=== PATIENT | male | born 1940 | race Asian ===

== ENCOUNTER 2020-02-06 14:20 | Emergency (ER) | payer OTHER ==
[~2020-02-06] VITALS: Ht 170.2 cm; Wt 65.8 kg
--- NOTE | 2020-02-06 15:05 | NUR ---
BIBDAUGHTER FROM HOME TO ER BED 12. AAOX4. NO IN RESP DISTRESS, BREATHING EVEN AND UNLABORED. AMBULATORY. BROUGHT IN FOR BILAT LOWER LEG EDEMA THAT HAS BEEN GOING ON FOR THE PAST 2 MONTH. ALSO, DAUGHTER REPORTS THAT HE HAD A FALL 10DAYS AGO AND HIT HIS HEAD. PT CANT REMEMBER IF HE PASSED OUT. NOTED L EYE REDNESS AND PURPLISH DISCOLORATION. NOTED +3 EDEMA ON BILAT LOWER LEG. WOUND ON L KNEE W/ SCAB. MD WAS TA BEDSIDE FOR EVAL. ORDERS RECEIVED NOTED AND CARRIED OUT. IV LINE ON R AC 18G, BLOOD DRAWN AND GIVEN TO PHONE REPRESENTATIVE AT BEDSIDE.
--- NOTE | 2020-02-06 15:05 | NUR ---
Leroy hill in [facility] - 02/06/20 at 1534 by BILL PATY
[2020-02-06 15:06] LABS: BASOPHILS % (AUTO) 0.2 % (0.0-2.0); EOSINOPHILS % (AUTO) 0.2 % (0.0-6.0); HEMATOCRIT 31 % (39-51); HEMOGLOBIN 10.3 g/dL (13.5-17.5); LYMPHOCYTES # (AUTO) 0.8 /CMM (0.8-4.8); LYMPHOCYTES % (AUTO) 23.9 % (20.0-44.0); MEAN CORPUSCULAR HGB CONC 34 g/dl (31.0-36.0); MEAN CORPUSCULAR VOLUME 112 fL (80-96); MONOCYTES # (AUTO) 0.2 /CMM (0.1-1.30); MONOCYTES % (AUTO) 4.3 % (2.0-12.0); NEUTROPHILS # (AUTO) 2.5 /CMM (1.8-8.9); NEUTROPHILS % (AUTO) 71.4 % (43.0-81.0); PLATELET COUNT (AUTO) 130 /CMM (150-450); RED BLOOD CELL COUNT(AUTO) 2.73 MIL/uL (4.5-6.0); WHITE BLOOD COUNT (AUTO) 3.5 K/uL (4.3-11.0)
[2020-02-06 15:14] LABS: CALCIUM, SERUM 8.8 mg/dL (8.5-10.1); CARBON DIOXIDE 34 mmol/L (21-32); CHLORIDE 104 mmol/L (98-107); CREATININE 0.7 mg/dL (0.6-1.3); GLUCOSE 122 mg/dL (74-106); SODIUM SERUM 141 mmol/L (136-145); UREA NITROGEN, BLOOD 8 mg/dL (7-18)
[2020-02-06 15:27] LABS: ALANINE AMINOTRANSFERASE 94 U/L (12-78); ALBUMIN 2.9 g/dL (3.4-5.0); ALKALINE PHOSPHATASE 127 U/L (46-116); ASPARTATE AMINOTRANSFERASE 114 U/L (15-37); B-TYPE NATRIURETIC PEPTIDE 265 PG/ML (0-125); BILIRUBIN,DIRECT 0.7 mg/dL (0.0-0.2); TOTAL PROTEIN, SERUM 6.2 g/dL (6.4-8.2)
[2020-02-06] MEDS ORDERED: IOHEXOL-300 100 ML VIAL IV ONE (15:31)
[2020-02-06] MEDS ORDERED: CT SWABBABLE VALVE TRANS SET 1 EA INFUS.SET MC ONE ×2 (15:31→17:04)
[2020-02-06] MEDS ORDERED: IV NS 0.9% 250 ML IV ONE ×2 (15:31→17:04)
[2020-02-06 15:39] LABS: LYMPHOCYTES % (MANUAL) 26 % (16-48); MONOCYTES % (MANUAL) 2 % (0-11.0); NEUTROPHILS % (MANUAL) 72 (42-76)
--- NOTE | 2020-02-06 15:50 | NUR ---
PT BACK FROM RADIOLOGY. US AT BEDSIDE
--- NOTE | 2020-02-06 15:57 | NUR ---
JIM ([facility]) [phone]
[2020-02-06] MEDS ORDERED: IOHEXOL-350 100 ML VIAL IV ONE (17:04)
--- NOTE | 2020-02-06 18:57 | NUR ---
PT PROVIDED [facility] FOOD. DAUGHTER INFORMED OF DISCHARGE AND WILL BE PICKING UP FATHER.
--- NOTE | 2020-02-06 19:21 | NUR ---
Patient discharged to home in stable condition under the care of daughter. Written and verbal after care instructions given to daugther. Patient and pt's daughter verbalizes understanding of instruction. IV removed. Catheter intact and site benign. Pressure and 4x4 applied to site. No bleeding noted. Pt ambulatory with a steady gait
[2020-02-06 19:23] VITALS: BP 159/95
== END 2020-02-06 19:23 | disposition home or self-care (01) ==
LOC: ER 14:26
DX: S00.83XA Contusion of other part of head, initial encounter (principal); I73.89 Other specified peripheral vascular diseases; R55 Syncope and collapse; R42 Dizziness and giddiness; I10 Essential (primary) hypertension; Z85.46 Personal history of malignant neoplasm of prostate; X58.XXXA Exposure to other specified factors, initial encounter; Y93.89 Activity, other specified; Y92.89 Other specified places as the place of occurrence of the external cause; Y99.8 Other external cause status
CPT/HCPCS: 36415; 70450; 71045; 74177; 75635; 80048; 80076; 83880; 84484; 85025; 85730; 93970; 99285; J7050 ×2; Q9967 ×2